=== PATIENT | male | born 1960 | race Caucasian/White ===

== ENCOUNTER 2021-01-11 16:59 | Emergency (ER) | payer SELFPAY ==
[~2021-01-11] VITALS: Ht 175.3 cm; Wt 80.0 kg
--- NOTE | 2021-01-11 17:18 | NUR ---
[employer]orkers found pt ALOC/post ictal on the job. Per pt has known seizure disorder takes keppra/dilantin. Upon medic arrival pt post-ictal. abrasion to forehead, tongue trauma. BG on arrival 126. EKG done, monitor, seizure pads/precautions.
[2021-01-11 18:33] LABS: BASOPHILS % (AUTO) 0 % (0-1); EOSINOPHILS % (AUTO) 1 % (1-7); LYMPHOCYTES % (AUTO) 10 % (22-44); MEAN CORPUSCULAR HEMOGLOBIN 33.7 pg (27.5-34.5); MEAN CORPUSCULAR HGB CONC 34.5 g/dL (33.2-36.2); MEAN PLATELET VOLUME 7.7 fL (7.4-10.4); MONOCYTES % (AUTO) 6 % (2-9); NEUTROPHILS % (AUTO) 83 % (42-75); PLATELET COUNT 141 x10^3/uL (130-400); RED BLOOD COUNT 4.24 x10^6/uL (4.38-5.82); RED CELL DISTRIBUTION WIDTH 12.4 % (9.4-14.8)
--- NOTE | 2021-01-11 18:36 | NUR ---
PT RESTING COMFORTABLY ON GURNEY. RESP EVEN AND UNLABORED. PT STATES NO SEIZURE ACTIVITY. CALL LIGHT IN REACH. AWAITING CT.
[2021-01-11 18:37] LABS: ALANINE AMINOTRANSFERASE 33 U/L (12-78); ANION GAP 4 mmol/L (5-15); CALCIUM 8.7 mg/dL (8.5-10.1); CHLORIDE 102 mmol/L (98-107); CREATININE 1.23 mg/dL (0.7-1.3)
[2021-01-11] MEDS ORDERED: SERT50TA28 PO (18:38)
[2021-01-11] MEDS ORDERED: LEVE750T37 PO (18:38)
[2021-01-11] MEDS ORDERED: PHEN100C PO (18:38)
[2021-01-11 18:51] LABS: ALKALINE PHOSPHATASE 71 U/L (45-117); BILIRUBIN,TOTAL 0.2 mg/dL (0.2-1.0); TOTAL PROTEIN 7.5 g/dL (6.4-8.2)
--- NOTE | 2021-01-11 18:59 | NUR ---
REPORT GIVEN TO KARLOS HUDDLESTON.
[2021-01-11 20:06] VITALS: BP 125/65
== END 2021-01-11 20:41 | disposition home or self-care (01) ==
LOC: ED 17:31
DX: S00.93XA Contusion of unspecified part of head, initial encounter (principal); S09.90XA Unspecified injury of head, initial encounter; R55 Syncope and collapse; R94.31 Abnormal electrocardiogram [ECG] [EKG]; W18.30XA Fall on same level, unspecified, initial encounter; Y93.89 Activity, other specified; Y92.89 Other specified places as the place of occurrence of the external cause; Y99.8 Other external cause status
CPT/HCPCS: 36415; 70450; 80053; 80185; 85025; 93005; 99285